=== PATIENT | female | born 1955 | race Caucasian/White ===

== ENCOUNTER 2017-08-14 09:44 | Emergency (ER) | payer OTHER ==
[~2017-08-14] VITALS: Ht 175.3 cm; Wt 95.0 kg
[2017-08-14 09:50] VITALS: BP 148/86; PULSE 76; RESP 18; TEMP 99.4; O2SAT 97
[2017-08-14] MEDS ORDERED: LOSA50TA PO (10:20)
[2017-08-14] MEDS ORDERED: BUPR150XL PO (10:20)
[2017-08-14] MEDS ORDERED: LIPI10TA PO (10:20)
[2017-08-14] MEDS ORDERED: OCUF0.3D LEFT EYE (10:21)
[2017-08-14] MEDS ORDERED: ZITHTAB PO (11:19)
[2017-08-14] MEDS ORDERED: PRED1SUS EACH EYE (11:19)
--- NOTE | 2017-08-14 11:19 | PD ---
HPI Chief Complaint: Eye Problems/Injury Time Seen by Provider: 10:50 Travel History International Travel<30 days: No Contact w/Intl Traveler<30days: No Traveled to known affect area: No History of Present Illness HPI 62-year-old female complains of eye pain and swelling. Patient started having redness and discharged from the left eye 4 days ago. Patient was seen by personal physician 3 days ago and given prescription for polymyxin ophthalmic solution. Patient states that the redness and swelling got worse and she got contact with her physician and prescription of ofloxacin and erythromycin ointment was given. Patient started using the new medications this morning and had increase in pain and swelling on the left eyes. Patient denies any visual change. Patient states that she started having fever coughing congestion body ache since last night. Patient states that the cough is mildly productive. Patient denies any chest pain or shortness of breath. Patient states that she has mild aching pain in the anterior neck area and also bilateral shoulder area. Patient states that she has ear congestion. Patient states that family members with upper respiratory infection at home. PFSH Past Medical History Depression: Yes High Cholesterol: Yes Diabetes: No (pre diabetic diet control) Hypertension: Yes Tetanus Vaccination: > 5 Years Influenza Vaccination: Yes ?: Not Menopausal: Yes Past Surgical History Other Surgery: Yes (bilat lower legs and upper spine area r/t bone spurs removal) Social History Alcohol Use: Yes (occass wine) Tobacco Use: No (quit 1 1/2 yrs ago) Substance Use: No Allergies-Medications (Allergen,Severity, Reaction): Coded Allergies: Penicillins (Verified Allergy, Severe, Anaphylaxis, 08/14/17) Uncoded Allergies: ALL CILLINS (Allergy, Severe, 08/14/17) Reported Meds & Prescriptions Reported Meds & Active Scripts Active Reported Ocuflox Opth Drops (Ofloxacin Opth Drops) 0.3 % Drops 1 Drop LEFT EYE QID Lipitor (Atorvastatin Calcium) Unknown Strength Tab Unknown Dose PO HS Wellbutrin Xl 24 HR (Bupropion HCl) 150 Mg Tab 100 Mg PO DAILY Losartan (Losartan Potassium) 50 Mg Tab 50 Mg PO DAILY Review of Systems General / Constitutional: No: Fever Eyes: Positive: Redness, Pain, No: Visual changes HENT: Positive: Congestion, No: Headaches Cardiovascular: No: Chest Pain or Discomfort Respiratory: Positive: Cough, No: Shortness of Breath Gastrointestinal: No: Abdominal Pain Genitourinary: No: Dysuria Musculoskeletal: No: Pain Skin: No Rash Neurologic: No: Weakness Psychiatric: No: Depression Endocrine: No: Polydipsia Hematologic/Lymphatic: No: Easy Bruising Physical Exam Narrative GENERAL: Well-nourished, well-developed patient. SKIN: Focused skin assessment warm/dry. HEAD: Normocephalic. EYES: Patient has bilateral conjunctiva erythematous. Mild edema on the left conjunctiva. Patient has mild edema pedal of the area left eye. Mild tenderness in palpation. Mild redness noted. Patient had clear discharge from both eyes. Both eyes stained with fluorescein stain reveals no uptake. EOMI. NECK: Supple, trachea midline. No JVD or lymphadenopathy. CARDIOVASCULAR: Regular rate and rhythm without murmurs, gallops, or rubs. RESPIRATORY: Breath sounds equal bilaterally. No accessory muscle use. GASTROINTESTINAL: Abdomen soft, non-tender, nondistended. MUSCULOSKELETAL: No cyanosis, or edema. BACK: Nontender without obvious deformity. No CVA tenderness. Data Data Last Documented VS Vital Signs Date Time Temp Pulse Resp B/P (MAP) Pulse Ox O2 Delivery O2 Flow Rate FiO2 08/14/17 10:11 16 08/14/17 09:50 99.4 76 148/86 (106) 97 MDM Medical Decision Making Medical Screen Exam Complete: Yes Emergency Medical Condition: Yes Differential Diagnosis Differential diagnosis including conjunctivitis, viral versus bacterial, orbital cellulitis, periorbital cellulitis, URI, bronchitis. Narrative Course 62-year-old female with bilateral eye redness and edema in the left eye and clear discharge from left eye. Patient is on polymyxin and then erythromycin and then oral ofloxacin eyedrop. Patient has symptoms of URI. Diagnosis Primary Impression: Viral conjunctivitis of both eyes Additional Impression: Bronchitis Additional Instructions: Pred forte eyedrops as directed. Z-Chavo as directed. Tylenol for fever. Follow -up with personal physician. Return if worse. Continue with Orafloxacin eyedrop. Med/Other Pt SpecificInfo: Prescription(s) given Scripts Prednisolone Acetate Opth 1% (Pred Forte Opth 1%) 1% Susp 1 DROP EACH EYE QID for Inflammation, #1 BOTTLE 0 Refills Prov: Stevan Guillory MD 5/26/18 Azithromycin (Zithromax Z-Chavo) 250 Mg Dspk 250 MG PO DIRECTED for Infection, #1 DSPK 0 Refills 500 MG (2 tabs) day 1, then 1 tab days 2-5. Prov: Stevan Guillory MD 08/14/17 Disposition: 01 DISCHARGE HOME Condition: Stable Stevan Guillory MD August 14, 2017 11:19
== END 2017-08-14 11:35 | disposition home or self-care (01) ==
LOC: PHED 09:44
DX: B30.9 Viral conjunctivitis, unspecified (principal); J40 Bronchitis, not specified as acute or chronic; E78.00 Pure hypercholesterolemia, unspecified; F32.9 Major depressive disorder, single episode, unspecified; I10 Essential (primary) hypertension; R73.03 Prediabetes; Z87.891 Personal history of nicotine dependence
CPT/HCPCS: 99283